=== PATIENT | male | born 1985 | race Caucasian/White ===

== ENCOUNTER 2020-12-02 06:52 | Day surgery (SDC) | payer OTHER ==
[~2020-12-02] VITALS: Ht 180.3 cm; Wt 133.1 kg
[~2020-12-02 06:52] MED LIST: ALBU8.5H8 INH; ALLEGRA PO; CETI10TA76 PO; EPIN0.3A3 SC; FLUO10TA PO; FLUT12AE INH; GABA-826 PO; LORA-445 PO; MONT10TA6 PO; NABU750T11 PO; RISP0.5T62 PO
[2020-12-02 07:27] VITALS: BP 107/64
[2020-12-02] MEDS ORDERED: OXYcodone 5 MG/5 ML ORAL.SOL UDC PO PRN (07:30)
[2020-12-02] MEDS ORDERED: LACTATED RINGERS 1,000 ML IV SCH (07:30)
[2020-12-02] MEDS ORDERED: ONDANSETRON 2MG/ML, 2ML IVPush PRN (07:30)
[2020-12-02] MEDS ORDERED: CHLORHEXIDINE 15 ML UDC PO ONE (07:30)
[2020-12-02] MEDS ORDERED: LABETALOL 5MG/ML, 20ML IV PRN (07:30)
[2020-12-02] MEDS ORDERED: PROMETHAZINE 25 MG/ML, 1ML IVPush PRN (07:30)
[2020-12-02] MEDS ORDERED: hydrALAzine 20 MG/ML, 1ML IV PRN (07:30)
[2020-12-02] MEDS ORDERED: FENTANYL PF 100 MCG/2ML IV PRN (07:30)
[2020-12-02] MEDS ORDERED: ACETAMINOPHEN 325 MG TABLET PO PRN (07:30)
[2020-12-02] MEDS ORDERED: HYDROmorphone 1 MG/ML, 1ML INJ IVPush PRN (07:30)
[2020-12-02] MEDS ORDERED: EPHEDRINE 50 MG/ML, 1ML IVPush PRN (07:30)
[2020-12-02] MEDS ORDERED: EPINEPHRINE 1 MG/ML, 1ML ONE (08:10)
[2020-12-02] MEDS ORDERED: BUPIVACAINE/PF 0.5% ONE (08:10)
[2020-12-02] MEDS ORDERED: FENTANYL PF 250 MCG/5ML ONE (08:15)
[2020-12-02] MEDS ORDERED: MIDAZOLAM 1 MG/ML, 2ML ONE (08:15)
[2020-12-02] MEDS ORDERED: CEFOTETAN 2 GM ONE (08:40)
[2020-12-02] MEDS ORDERED: KETOROLAC 30 MG/1 ML ONE (08:43)
[2020-12-02] MEDS ORDERED: LIDOCAINE-MPF 2% ,5ML ONE (08:43)
[2020-12-02] MEDS ORDERED: PROPOFOL 10 MG/ML, 20ML ONE (08:50)
[2020-12-02] MEDS ORDERED: DEXAMETHASONE 4 MG/ML, 1ML ONE (08:50)
[2020-12-02] MEDS ORDERED: SUCCINYLCHOLINE 20 MG/ML, 10ML ONE (08:50)
[2020-12-02] MEDS ORDERED: ONDANSETRON 2MG/ML, 2ML ONE (08:50)
== END 2020-12-02 12:00 | disposition home or self-care (01) ==
LOC: OUT 06:52
PROVIDERS: ATTEND Colon & Rectal Surgery
DX: K60.3 Anal fistula (principal); J45.909 Unspecified asthma, uncomplicated; F41.9 Anxiety disorder, unspecified; F32.9 Major depressive disorder, single episode, unspecified; Q79.60 Ehlers-Danlos syndrome, unspecified; Z20.822 Contact with and (suspected) exposure to COVID-19; Z79.899 Other long term (current) drug therapy; Z88.5 Allergy status to narcotic agent; Z98.890 Other specified postprocedural states; Z80.41 Family history of malignant neoplasm of ovary
CPT/HCPCS: 46275; J0171; J0330; J1100; J1885; J2250; J2405; J2704; J3010; J7120; U0003; U0005